=== PATIENT | female | born 1950 | race Caucasian/White ===

== ENCOUNTER 2025-07-13 20:42 | Inpatient (IN) | payer MEDICARE ==
[~2025-07-13] VITALS: Ht 160 cm; Wt 58.1 kg
[2025-07-13 20:50] VITALS: BP 122/77
[2025-07-13] MEDS ORDERED: MULT-1045 (21:03)
[2025-07-13] MEDS ORDERED: VIT1CAPS9 PO (21:03)
[2025-07-13] MEDS ORDERED: FAMO-132 (21:03)
[2025-07-13] MEDS ORDERED: LATA2.5D2 EACHEYE (21:03)
[2025-07-13] MEDS ORDERED: IBUP-2413 (21:03)
[2025-07-13] MEDS ORDERED: THIA100T74 (21:03)
[2025-07-13 23:14] VITALS: BP 134/77; TEMP 98.2; O2SAT 96
[2025-07-14] MEDS ORDERED: TEMAZEPAM 7.5 MG CAPSULE PO PRN ×2 (00:30)
[2025-07-14] MEDS: BLOOD SUGAR DIAGNOSTIC 1 EACH STRIP VI ONE (00:44)
[2025-07-14] MEDS: LORAZEPAM 1 MG TABLET PO PRN (00:48)
[2025-07-14] MEDS ORDERED: TEMAZEPAM 15 MG CAPSULE PO PRN (08:15)
[2025-07-14 08:18] VITALS: BP 134/71; TEMP 98; O2SAT 96
[2025-07-14 08:32] LABS: GLUCOSE FASTING 88.0 mg/dL (70-115)
[2025-07-14] MEDS: FLUOXETINE HCL 20 MG CAPSULE PO SCH (11:46)
[2025-07-14] MEDS: OLANZAPINE ZYDIS 5 MG TAB.RAPDIS PO SCH (11:48)
[2025-07-14] MEDS ORDERED: PROP15DR EACHEYE (11:51)
[2025-07-14 15:07] VITALS: BP 126/71; TEMP 98.2; O2SAT 96
[2025-07-14 19:50] VITALS: BP 130/72; TEMP 98.1; O2SAT 95
[2025-07-14] MEDS: LATANOPROST OPHT DROP 2.5 ML BOTTLE EACHEYE SCH (20:28)
[2025-07-15 05:36] LABS: *BILIRUBIN,URIN NEGATIVE (NEGATIVE); *BLOOD, URINE NEGATIVE (NEGATIVE); *CLARITY,URINE CLEAR (CLEAR); *COLOR,URINE YELLOW (YELLOW); *KETONES,URINE NEGATIVE (NEGATIVE); *PROTEIN,URINE NEGATIVE (NEGATIVE); *UROBILINOGEN,URINE 0.2 E.U./dl (NORMAL); LEUKOCYTE ESTERASE ,URINE 1+ (NEGATIVE); NITRITE, URINE NEGATIVE (NEGATIVE); UGLUCOSE NEGATIVE (NEGATIVE)
[2025-07-15 05:41] LABS: SQUAMOUS EPITHELIAL CELL,UR FEW /HPF (NONE SEEN)
[2025-07-15 08:02] LABS: PLATELET COUNT (AUTO) 163 K/uL (179-408); RED BLOOD CELL COUNT(AUTO) 3.77 MIL/uL (3.63-4.92); RED CELL DISTRIBUTION WIDTH 13.6 % (12.3-17.7); WHITE BLOOD COUNT (AUTO) 4.2 K/uL (3.8-11.8)
[2025-07-15 08:10] VITALS: BP 133/62; TEMP 98.2; O2SAT 96
[2025-07-15 08:13] LABS: ASPARTATE AMINOTRANSFERASE 17 U/L (15-37); CREATININE 0.5 mg/dL (0.6-1.3); SODIUM SERUM 143 mmol/L (136-145); TOTAL PROTEIN, SERUM 7.0 g/dL (6.4-8.2); UREA NITROGEN, BLOOD 19 mg/dL (7-18)
[2025-07-15 16:28] VITALS: BP 115/76; TEMP 98.2; O2SAT 96
[2025-07-15 20:00] VITALS: BP 135/71; TEMP 98; O2SAT 95
[2025-07-16] MEDS: ACETAMINOPHEN 325 MG TABLET PO PRN (03:31)
[2025-07-16 08:12] VITALS: BP 115/68; TEMP 98.2; O2SAT 96
[2025-07-16] MEDS: ENSURE ENLIVE (VAN) 240 ML LIQUID PO SCH (09:00)
[2025-07-16] MEDS: MAG HYDROX/AL HYDROX/SIMETH 30 ML LIQUID UDC PO PRN (15:29)
[2025-07-16 16:18] VITALS: BP 133/68; TEMP 98.2; O2SAT 96
[2025-07-16 20:00] VITALS: BP 100/75; TEMP 98; O2SAT 95
[2025-07-17 08:55] VITALS: BP 122/70; TEMP 98.2; O2SAT 96
[2025-07-17] MEDS ORDERED: BRIMONIDINE-P 0.1% OPHTH DROP 5 ML DROPS EACHEYE SCH (12:15)
[2025-07-17] MEDS: BRIMONIDINE 0.2% OPHT DROP 10 ML BOTTLE EACHEYE SCH (12:22)
[2025-07-17 16:41] VITALS: BP 118/78; TEMP 98.2; O2SAT 96
[2025-07-17 20:00] VITALS: BP 126/55; TEMP 98.2; O2SAT 95
[2025-07-18 08:22] VITALS: BP 123/69; TEMP 98.1; O2SAT 99
[2025-07-18 17:29] VITALS: BP 112/66; TEMP 97.7; O2SAT 99
[2025-07-18 20:09] VITALS: BP 100/60; TEMP 98.1; O2SAT 97
[2025-07-18] MEDS: LORAZEPAM 1 MG TABLET PO PRN (23:04)
[2025-07-19 07:48] VITALS: BP 125/61; TEMP 98; O2SAT 99
[2025-07-19] MEDS: OLANZAPINE ZYDIS 5 MG TAB.RAPDIS PO SCH (09:00)
[2025-07-19 15:09] VITALS: BP 120/75; TEMP 98; O2SAT 96
[2025-07-19 19:53] VITALS: BP 124/63; TEMP 98.1; O2SAT 94
[2025-07-19] MEDS: MIRTAZAPINE 15 MG TABLET PO ONE (20:33)
[2025-07-19] MEDS ORDERED: MIRTAZAPINE 15 MG TABLET PO SCH (21:00)
[2025-07-20 08:01] VITALS: BP 101/63; TEMP 98; O2SAT 96
[2025-07-20 15:15] VITALS: BP 112/64; TEMP 98; O2SAT 96
[2025-07-20 19:54] VITALS: BP 117/65; TEMP 97.4; O2SAT 96
[2025-07-20] MEDS: MIRTAZAPINE 15 MG TABLET PO SCH (20:58)
[2025-07-21 07:46] VITALS: BP 130/73; TEMP 97.8; O2SAT 98
[2025-07-21 16:26] VITALS: BP 121/63; TEMP 98.7; O2SAT 98
[2025-07-21 19:50] VITALS: BP 117/72; TEMP 97.7; O2SAT 96
[2025-07-22 08:42] VITALS: BP 116/63; TEMP 98.7; O2SAT 98
[2025-07-22 16:24] VITALS: BP 125/64; TEMP 97.7; O2SAT 96
[2025-07-22 19:52] VITALS: BP 121/76; TEMP 98.2; O2SAT 97
[2025-07-23 08:53] VITALS: BP 104/72; TEMP 98.7; O2SAT 98
[2025-07-23 16:33] VITALS: BP 111/66; TEMP 97.7; O2SAT 96
[2025-07-23 19:40] VITALS: BP 113/57; TEMP 98.1; O2SAT 99
[2025-07-24 08:49] VITALS: BP 122/72; TEMP 98.7; O2SAT 98
[2025-07-24 16:46] VITALS: BP 110/65; TEMP 97.7; O2SAT 96
[2025-07-24 19:57] VITALS: BP 128/74; TEMP 97.4; O2SAT 95
[2025-07-25 08:00] VITALS: BP 147/65; TEMP 97.8; O2SAT 97
[2025-07-25 16:00] VITALS: BP 101/69; TEMP 97.5; O2SAT 96
[2025-07-25 19:55] VITALS: BP 100/62; TEMP 98.5; O2SAT 94
[2025-07-26 07:53] VITALS: BP 126/54; TEMP 98.5; O2SAT 96
[2025-07-26 15:23] VITALS: BP 110/67; TEMP 98; O2SAT 96
== END 2025-07-26 16:00 | DRG 885 ==
LOC: ER 20:42 → GPS 21:56
PROVIDERS: ADMIT Psychiatry & Neurology Psychiatry
DX: F25.0 Schizoaffective disorder, bipolar type (principal); Z59.01 Sheltered homelessness; Z96.641 Presence of right artificial hip joint; Z96.651 Presence of right artificial knee joint; H40.9 Unspecified glaucoma; D69.6 Thrombocytopenia, unspecified; F31.9 Bipolar disorder, unspecified
CPT/HCPCS: 36415; 83735; 84100; 84443; 85025; 87086